=== PATIENT | female | born 1980 | race Caucasian/White ===

== ENCOUNTER → 2020-05-30 | Outpatient (CLI) | payer OTHER ==
[2020-05-30 15:28] LABS: ALBUMIN 4.2 g/dL (3.5-5.0)
[2020-05-30 15:30] LABS: TOTAL PROTEIN 7.8 g/dL (6.4-8.3)
[2020-05-30 15:32] LABS: TOTAL BILIRUBIN 0.6 mg/dL (0.2-1.2)
[2020-05-30 15:36] LABS: DIRECT BILIRUBIN 0.2 mg/dL (0.0-0.5)
== END ==
LOC: LAB 15:07
PROVIDERS: Physician Assistant
DX: Z51.81 Encounter for therapeutic drug level monitoring (principal); Z79.899 Other long term (current) drug therapy

== ENCOUNTER → 2020-11-01 | Outpatient (CLI) | payer OTHER ==
[2020-11-01 17:25] LABS: EOS # 0.1 (0.04-0.40); EOS % 1.2 % (1.0-5.0); HEMATOCRIT 42.2 % (37.0-47.0); HEMOGLOBIN 13.9 g/dL (12.5-16.0); LYMPH# 2.3 (1.50-4.00); MEAN CELL VOLUME 89 fl (78-100); MEAN CORPUSCULAR HEMOGLOBIN 29 pg (27-31); MEAN CORPUSCULAR HGB CONC 33 g/dL (33-37); MEAN PLATELET VOLUME 9.5 fl (7.4-10.4); MONO # 0.7 (0.20-0.80); NEU # 6.9 (1.40-6.50); PLATELET COUNT 404 K/mm3 (130-400); RED BLOOD COUNT 4.72 M/mm3 (4.10-5.30); RED CELL DISTRIBUTION WIDTH 12.6 % (11.5-14.5)
[2020-11-01 17:37] LABS: ALBUMIN 4.4 g/dL (3.5-5.0); POTASSIUM 4.1 mmol/L (3.5-5.1); SODIUM 139 mmol/L (136-145)
[2020-11-01 17:38] LABS: CALCIUM 9.3 mg/dL (8.3-10.5)
[2020-11-01 17:39] LABS: GLUCOSE 89 mg/dL (65-105); TOTAL PROTEIN 7.8 g/dL (6.4-8.3)
[2020-11-01 17:41] LABS: CARBON DIOXIDE 26 mmol/L (22-29); TOTAL BILIRUBIN 0.4 mg/dL (0.2-1.2)
[2020-11-01 17:45] LABS: AST-SGOT 15 U/L (5-34)
[2020-11-01 17:46] LABS: ALT/SGPT 13 U/L (0-55)
[2020-11-01 17:50] LABS: D-DIMER 0.08 mg/L FEU (0.15-0.50)
[2020-11-01 17:52] LABS: TROPONIN-I < 0.03 ng/mL (<0.030)
== END ==
LOC: LAB 17:13
PROVIDERS: Nurse Practitioner
DX: R20.2 Paresthesia of skin (principal)

== ENCOUNTER → 2021-02-23 | Outpatient (CLI) | payer OTHER ==
[2021-02-23 15:47] LABS: EOS # 0.1 (0.04-0.40); EOS % 0.7 % (1.0-5.0); HEMATOCRIT 39.8 % (37.0-47.0); HEMOGLOBIN 13.4 g/dL (12.5-16.0); LYMPH# 2.1 (1.50-4.00); MEAN CELL VOLUME 89 fl (78-100); MEAN CORPUSCULAR HEMOGLOBIN 30 pg (27-31); MEAN CORPUSCULAR HGB CONC 34 g/dL (33-37); MEAN PLATELET VOLUME 8.9 fl (7.4-10.4); MONO # 0.6 (0.20-0.80); NEU # 6.6 (1.40-6.50); PLATELET COUNT 380 K/mm3 (130-400); RED BLOOD COUNT 4.48 M/mm3 (4.10-5.30); RED CELL DISTRIBUTION WIDTH 12.3 % (11.5-14.5); WHITE BLOOD COUNT 9.5 K/mm3 (4.8-10.8)
[2021-02-23 15:55] LABS: POTASSIUM 3.6 mmol/L (3.5-5.1)
[2021-02-23 15:56] LABS: CALCIUM 8.4 mg/dL (8.3-10.5)
[2021-02-23 15:57] LABS: TOTAL PROTEIN 7.1 g/dL (6.4-8.3)
[2021-02-23 15:59] LABS: TOTAL BILIRUBIN 0.5 mg/dL (0.2-1.2)
== END ==
LOC: LAB 15:30
PROVIDERS: Nurse Practitioner
DX: R19.5 Other fecal abnormalities (principal)